=== PATIENT | male | born 1970 | race Caucasian/White ===

== ENCOUNTER 2019-12-01 11:40 | Emergency (ER) | payer BC ==
[~2019-12-01] VITALS: Ht 170.2 cm; Wt 85.8 kg
[2019-12-01 11:45] VITALS: BP 149/87
[2019-12-01] MEDS ORDERED: PROPARACAINE OPHTH 0.5%, 15ML ONE (11:55)
[2019-12-01] MEDS ORDERED: FLUORESCEIN OPHTHALMIC 1 MG STRIP ONE (11:55)
[2019-12-01] MEDS ORDERED: DIPH,PERTUSS(ACELL),TET VAC/PF 0.5 ML IM-VACC ONE ×2 (11:57→13:00)
--- NOTE | 2019-12-01 12:15 | NUR ---
TASK RN NOTE: AWAITING CALL BACK FROM OPTHOMOLOGIST PAGE. PT SITTING UP IN CHAIR. NAD NOTED AT THIS TIME. PREV RN ADMINISTERED MEDS PER EMAR. PT TOLERATED WELL.
[2019-12-01] MEDS ORDERED: PROPARACAINE OPHTH 0.5%, 15ML EACHEYE ONE (13:00)
[2019-12-01] MEDS ORDERED: FLUORESCEIN OPHTHALMIC 1 MG STRIP EACHEYE ONE (13:00)
== END 2019-12-01 12:58 | disposition home or self-care (01) ==
LOC: ED 12:45
DX: T15.01XA Foreign body in cornea, right eye, initial encounter (principal); X58.XXXA Exposure to other specified factors, initial encounter; Y93.89 Activity, other specified; Y92.89 Other specified places as the place of occurrence of the external cause; Y99.8 Other external cause status
CPT/HCPCS: 65222; 90471; 90715; 99284